=== PATIENT | female | born 1990 | race Caucasian/White ===

== ENCOUNTER 2016-10-06 18:47 | Emergency (ER) | payer OTHER ==
[~2016-10-06] VITALS: Ht 170.2 cm; Wt 101.8 kg
[2016-10-06 19:00] VITALS: BP 130/88
== END 2016-10-06 19:49 | disposition home or self-care (01) ==
LOC: ED 18:47
DX: H60.502 Unspecified acute noninfective otitis externa, left ear (principal); J06.9 Acute upper respiratory infection, unspecified; F17.210 Nicotine dependence, cigarettes, uncomplicated